=== PATIENT | female | born 1970 | race American Indian/Alaskan Native ===

== ENCOUNTER 2016-02-22 13:24 | Emergency (ER) | payer SELFPAY ==
--- NOTE | 2016-02-22 16:33 | Emergency Department Report ---
Chief Complaint: Abdominal Pain Stated Complaint: CRAMPING/MISSED PERIOD Time Seen by Provider: 02/22/16 16:28 - HPI History of Present Illness: Patient here reports that she's having lower abdominal cramping for 3-4 days. She said her last menstrual period was in December. Patient here reporting that she wants to know if she is . Denies any vaginal bleeding or discharge. She says she took a test but he came back pain. She says she schedule appointment for her primary care physician but couldn't wait to see primary care physician. Denies any urinary burning but reports urinary frequency. She says she drinks a lot of water. Pain is 8 out of 10 to lower abdomen and cramping. Denies any vomiting. Denies any diarrhea. She denies any fever or chills. - ROS Review of Systems: All systems are negative unless stated in HPI above. - Exam Vital Signs: Vital Signs 02/22/16 15:08 Temperature 98.2 F Pulse Rate 90 Blood Pressure 123/82 O2 Sat by Pulse 100 Oximetry Physical Exam: Gen: 45-year-old female well-nourished well-developed in no acute distress. GI: Abdomen tender to palpate to left lower pelvic area. No guarding or rebound tenderness. Normal bowel sounds in all quadrants MSE screening note: Focused history and physical exam performed. Due to findings the following was ordered:see mdm ED Medical Decision Making - Medical Decision Making Medical decision making: Patient seen by provider in triage area. Appropriate protocol activated and patient to main ED to be seen by physician. ED Disposition for MSE Condition: Stable Instructions: Abdominal Pain (ED)
[2016-02-22 16:48] LABS: Mean Corpuscular HGB Conc 29 % (30-34); Platelet Count 442 K/mm3 (140-440); White Blood Count 6.5 K/mm3 (4.5-11.0)
[2016-02-22 16:49] LABS: Hematocrit 26.5 % (30.3-42.9); Hemoglobin 7.7 gm/dl (10.1-14.3); Mean Corpuscular Hemoglobin 18 pg (28-32); Mean Corpuscular Volume 62 fl (79-97)
[2016-02-22 17:09] LABS: Alanine Aminotransferase 10 units/L (7-56); Albumin 4.5 g/dL (3.9-5); Albumin/Globulin Ratio 1.5 %; Alkaline Phosphatase 114 units/L (35-129); Anion Gap 16 mmol/L; BUN/Creatinine Ratio 11.66; Bilirubin,Total 0.2 mg/dL (0.1-1.2); Blood Urea Nitrogen 7 mg/dL (7-17); Calcium 9.6 mg/dL (8.4-10.2); Carbon Dioxide 26 mmol/L (22-30); Chloride 99.8 mmol/L (98-107); Glucose 97 mg/dL (65-100); Lipase 54 units/L (13-60); Sodium 138 mmol/L (137-145); Total Protein 7.5 g/dL (6.3-8.2)
[2016-02-22 17:19] LABS: Bilirubin,Urine NEG (Negative); Blood,Urine NEG (Negative); Ketones,Urine NEG (Negative); Leukocyte Esterase,Urine NEG (Negative); Nitrite,Urine NEG (Negative); Protein,Urine <15 mg/dL mg/dL (Negative); Urobilinogen,Urine < 2.0 mg/dL (<2.0); WBC,Urine < 1.0 /HPF (0.0-6.0)
[2016-02-22 17:47] LABS: Basophils % (Manual) 0 % (0.0-1.8); Blastocytes % (Manual) 0 %
[2016-02-22 17:49] LABS: Anisocytosis 1+; Diff Status Complete; Poikilocytosis Few
[2016-02-22 22:35] VITALS: BP 112/70
--- NOTE | 2016-02-22 23:09 | Emergency Department Report ---
ED Female HPI - General Chief complaint: Abdominal Pain Stated complaint: CRAMPING/MISSED PERIOD Time Seen by Provider: 02/22/16 16:28 Source: patient, old records reviewed Mode of arrival: Ambulatory Limitations: No Limitations - History of Present Illness Initial comments: 45-year-old female with a past medical history of iron deficiency anemia and asthma presents to the hospital complains of lower abdominal cramping for 3-4 days. Pain is intermittent and rated 8/10 intensity, no aggravating or alleviating factors reported. Denies associated symptoms including nausea, vomiting, diarrhea, fever, or dysuria. Patient states 2 weeks ago she had a fairly positive test and has a scheduled visit with Dr. Rahman in the next week. Came in today due to persistent pain. Patient has a history of anemia and only take her iron pills every other day due to constipation. History of blood transfusion in the past. Last menstrual cycle 12/29/2015 - Related Data Home Medications Medication Instructions Recorded Confirmed Last Taken Fluticasone/Salmeterol [Advair 1 puff INHALATION BID 08/30/13 02/22/16 Unknown Diskus 250-50 mcg] Montelukast [Singulair] 10 mg PO DAILY PRN 08/30/13 02/22/16 Unknown Previous Rx's Medication Instructions Recorded Last Taken Type ALBUTEROL Inhaler [ProAir HFA 2 puff IH QID PRN #1 inhalation 06/02/14 Unknown Rx Inhaler] Cetirizine HCl [ZyrTEC] 10 mg PO DAILY #30 capsule 01/25/16 Unknown Rx Ibuprofen [Motrin 800 MG tab] 800 mg PO Q8HR PRN #30 tablet 01/25/16 Unknown Rx Docusate Sodium [Colace] 100 mg PO BID PRN #30 capsule 02/22/16 Unknown Rx Ferrous Sulfate [Feosol 325 MG tab] 325 mg PO QDAY #30 tablet 02/22/16 Unknown Rx Polyethylene Glycol 3350 [Miralax 17 gm PO QDAY PRN #20 packet 02/22/16 Unknown Rx 3350] Allergies Allergy/AdvReac Type Severity Reaction Status Date / Time egg Allergy Hives Verified 06/02/14 11:53 hydrocodone Allergy Itching Verified 06/02/14 11:53 latex Allergy Itching Verified 06/02/14 11:53 Penicillins Allergy Itching Verified 06/02/14 11:53 ED Review of Systems ROS: Stated complaint: CRAMPING/MISSED PERIOD Other details as noted in HPI Comment: All other systems reviewed and negative Other: Constitutional: No fevers chills Eyes: No eye pain visual changes ENT: No ear pain or throat pain Neck: Denies pain Respiratory: Denies cough wheezing shortness of breath Cardiovascular: Denies chest pain, palpitations, syncope GI: As per HPI : Denies dysuria, urinary frequency, or urgency Musculoskeletal: Denies back pain Skin: Denies rash, lesions, erythema Neurologic: Denies headache, numbness, weakness Psychiatric: Denies suicidal ideation, hallucinations ED Past Medical Hx - Past Medical History Previous Medical History?: Yes Hx Asthma: Yes Additional medical history: anemia. "syncopy" - Surgical History Past Surgical History?: Yes Additional Surgical History: D&C - Social History Smoking Status: Never Smoker Substance Use Type: None - Medications Home Medications: Home Medications Medication Instructions Recorded Confirmed Last Taken Type Fluticasone/Salmeterol [Advair 1 puff INHALATION BID 08/30/13 02/22/16 Unknown History Diskus 250-50 mcg] Montelukast [Singulair] 10 mg PO DAILY PRN 08/30/13 02/22/16 Unknown History ALBUTEROL Inhaler [ProAir HFA 2 puff IH QID PRN #1 inhalation 06/02/14 02/22/16 Unknown Rx Inhaler] Cetirizine HCl [ZyrTEC] 10 mg PO DAILY #30 capsule 01/25/16 02/22/16 Unknown Rx Ibuprofen [Motrin 800 MG tab] 800 mg PO Q8HR PRN #30 tablet 01/25/16 02/22/16 Unknown Rx Docusate Sodium [Colace] 100 mg PO BID PRN #30 capsule 02/22/16 Unknown Rx Ferrous Sulfate [Feosol 325 MG tab] 325 mg PO QDAY #30 tablet 02/22/16 Unknown Rx Polyethylene Glycol 3350 [Miralax 17 gm PO QDAY PRN #20 packet 02/22/16 Unknown Rx 3350] ED Physical Exam - General Limitations: No Limitations - Other Other exam information: General: No limitations, patient is alert in no acute distress Head exam: Atraumatic, normocephalic Eyes exam: Normal appearance, pupils equal reactive to light, extraocular movements intact ENT: Moist mucous membrane, normal oropharynx Neck exam: Normal inspection, full range of motion, no meningismus nontender Respiratory exam: Clear to auscultation bilateral, no wheezes, rales, crackles Cardiovascular: Normal rate and rhythm, normal heart sounds Abdomen: Soft, nondistended, and nontender, with normal bowel sounds, no rebound, or guarding : No bleeding, CMT, or adnexal tenderness Extremity: Full range of motion normal inspection no deformity Back: Normal Inspection, full range of motion, no tenderness Neurologic: Alert, oriented x3, cranial nerves intact, no motor or sensory deficit Psychiatric: normal affect, normal mood Skin: Warm, dry, intact ED Course Vital Signs 02/22/16 02/22/16 02/22/16 15:08 22:00 22:34 Temperature 98.2 F 98.2 F Pulse Rate 90 70 Respiratory 18 18 Rate Blood Pressure 123/82 Blood Pressure 112/70 [Left] O2 Sat by Pulse 100 100 Oximetry - Reevaluation(s) Reevaluation #1: 02/22/16 23:11 Patient did not occur any pain medication ED Medical Decision Making - Lab Data Result diagrams: 02/22/16 16:35 02/22/16 16:35 Lab Results 02/22/16 02/22/16 02/22/16 Range/Units 16:35 16:35 16:35 WBC 6.5 (4.5-11.0) K/mm3 RBC 4.30 (3.65-5.03) M/mm3 Hgb 7.7 L (10.1-14.3) gm/dl Hct 26.5 L (30.3-42.9) % MCV 62 L (79-97) fl MCH 18 L (28-32) pg MCHC 29 L (30-34) % RDW 21.0 H (13.2-15.2) % Plt Count 442 H (140-440) K/mm3 Add Manual Diff Complete Total Counted 100 Seg Neuts % (Manual) 59.0 (40.0-70.0) % Band Neutrophils % 0 % Lymphocytes % (Manual) 31.0 (13.4-35.0) % Reactive Lymphs % (Man) 0 % Monocytes % (Manual) 8.0 H (0.0-7.3) % Eosinophils % (Manual) 2.0 (0.0-4.3) % Basophils % (Manual) 0 (0.0-1.8) % Metamyelocytes % 0 % Myelocytes % 0 % Promyelocytes % 0 % Blast Cells % 0 % Nucleated RBC % Not Reportable Seg Neutrophils # Man 3.8 (1.8-7.7) K/mm3 Band Neutrophils # 0.0 K/mm3 Lymphocytes # (Manual) 2.0 (1.2-5.4) K/mm3 Abs React Lymphs (Man) 0.0 K/mm3 Monocytes # (Manual) 0.5 (0.0-0.8) K/mm3 Eosinophils # (Manual) 0.1 (0.0-0.4) K/mm3 Basophils # (Manual) 0.0 (0.0-0.1) K/mm3 Metamyelocytes # 0.0 K/mm3 Myelocytes # 0.0 K/mm3 Promyelocytes # 0.0 K/mm3 Blast Cells # 0.0 K/mm3 WBC Morphology Not Reportable Hypersegmented Neuts Not Reportable Hyposegmented Neuts Not Reportable Hypogranular Neuts Not Reportable Smudge Cells Not Reportable Toxic Granulation Not Reportable Toxic Vacuolation Not Reportable Dohle Bodies Not Reportable Pelger-Huet Anomaly Not Reportable Hermelindo Rods Not Reportable Platelet Estimate Appears normal Clumped Platelets Not Reportable Plt Clumps, EDTA Not Reportable Large Platelets Not Reportable Giant Platelets Not Reportable Platelet Satelliting Not Reportable Plt Morphology Comment Not Reportable RBC Morphology Not Reportable Dimorphic RBCs Not Reportable Polychromasia Not Reportable Hypochromasia Not Reportable Poikilocytosis Few Anisocytosis 1+ Microcytosis Not Reportable Macrocytosis Not Reportable Spherocytes Not Reportable Pappenheimer Bodies Not Reportable Sickle Cells Not Reportable Target Cells Not Reportable Tear Drop Cells Not Reportable Ovalocytes Not Reportable Helmet Cells Not Reportable Hernandez-Gapland Bodies Not Reportable [place] Rings Not Reportable Fidelia Cells Not Reportable Bite Cells Not Reportable Crenated Cell Not Reportable Elliptocytes Not Reportable Acanthocytes (Spur) Not Reportable Rouleaux Not Reportable Hemoglobin C Crystals Not Reportable Schistocytes Not Reportable Malaria parasites Not Reportable Dave Bodies Not Reportable Hem Pathologist Commnt No Sodium 138 (137-145) mmol/L Potassium 4.0 (3.6-5.0) mmol/L Chloride 99.8 (98-107) mmol/L Carbon Dioxide 26 (22-30) mmol/L Anion Gap 16 mmol/L BUN 7 (7-17) mg/dL Creatinine 0.6 L (0.7-1.2) mg/dL Estimated GFR > 60 ml/min BUN/Creatinine Ratio 11.66 % Glucose 97 (65-100) mg/dL Calcium 9.6 (8.4-10.2) mg/dL Total Bilirubin 0.2 (0.1-1.2) mg/dL AST 20 (5-40) units/L ALT 10 (7-56) units/L Alkaline Phosphatase 114 (35-129) units/L Total Protein 7.5 (6.3-8.2) g/dL Albumin 4.5 (3.9-5) g/dL Albumin/Globulin Ratio 1.5 % Lipase 54 (13-60) units/L HCG, Qual Negative (Negative) Urine Color (Yellow) Urine Turbidity (Clear) Urine pH (5.0-7.0) Ur Specific [place] (1.003-1.030) Urine Protein (Negative) mg/dL Urine Glucose (UA) (Negative) mg/dL Urine Ketones (Negative) mg/dL Urine Blood (Negative) Urine Nitrite (Negative) Urine Bilirubin (Negative) Urine Urobilinogen (<2.0) mg/dL Ur Leukocyte Esterase (Negative) Urine WBC (Auto) (0.0-6.0) /HPF Urine RBC (Auto) (0.0-6.0) /HPF U Epithel Cells (Auto) (0-13.0) /HPF 02/22/16 Range/Units 16:57 WBC (4.5-11.0) K/mm3 RBC (3.65-5.03) M/mm3 Hgb (10.1-14.3) gm/dl Hct (30.3-42.9) % MCV (79-97) fl MCH (28-32) pg MCHC (30-34) % RDW (13.2-15.2) % Plt Count (140-440) K/mm3 Add Manual Diff Total Counted Seg Neuts % (Manual) (40.0-70.0) % Band Neutrophils % % Lymphocytes % (Manual) (13.4-35.0) % Reactive Lymphs % (Man) % Monocytes % (Manual) (0.0-7.3) % Eosinophils % (Manual) (0.0-4.3) % Basophils % (Manual) (0.0-1.8) % Metamyelocytes % % Myelocytes % % Promyelocytes % % Blast Cells % % Nucleated RBC % Seg Neutrophils # Man (1.8-7.7) K/mm3 Band Neutrophils # K/mm3 Lymphocytes # (Manual) (1.2-5.4) K/mm3 Abs React Lymphs (Man) K/mm3 Monocytes # (Manual) (0.0-0.8) K/mm3 Eosinophils # (Manual) (0.0-0.4) K/mm3 Basophils # (Manual) (0.0-0.1) K/mm3 Metamyelocytes # K/mm3 Myelocytes # K/mm3 Promyelocytes # K/mm3 Blast Cells # K/mm3 WBC Morphology Hypersegmented Neuts Hyposegmented Neuts Hypogranular Neuts Smudge Cells Toxic Granulation Toxic Vacuolation Dohle Bodies Pelger-Huet Anomaly Hermelindo Rods Platelet Estimate Clumped Platelets Plt Clumps, EDTA Large Platelets Giant Platelets Platelet Satelliting Plt Morphology Comment RBC Morphology Dimorphic RBCs Polychromasia Hypochromasia Poikilocytosis Anisocytosis Microcytosis Macrocytosis Spherocytes Pappenheimer Bodies Sickle Cells Target Cells Tear Drop Cells Ovalocytes Helmet Cells Hernandez-Gapland Bodies [place] Rings Mathews Cells Bite Cells Crenated Cell Elliptocytes Acanthocytes (Spur) Rouleaux Hemoglobin C Crystals Schistocytes Malaria parasites Dave Bodies Hem Pathologist Commnt Sodium (137-145) mmol/L Potassium (3.6-5.0) mmol/L Chloride (98-107) mmol/L Carbon Dioxide (22-30) mmol/L Anion Gap mmol/L BUN (7-17) mg/dL Creatinine (0.7-1.2) mg/dL Estimated GFR ml/min BUN/Creatinine Ratio % Glucose (65-100) mg/dL Calcium (8.4-10.2) mg/dL Total Bilirubin (0.1-1.2) mg/dL AST (5-40) units/L ALT (7-56) units/L Alkaline Phosphatase (35-129) units/L Total Protein (6.3-8.2) g/dL Albumin (3.9-5) g/dL Albumin/Globulin Ratio % Lipase (13-60) units/L HCG, Qual (Negative) Urine Color Straw (Yellow) Urine Turbidity Clear (Clear) Urine pH 6.0 (5.0-7.0) Ur Specific [place] 1.010 (1.003-1.030) Urine Protein <15 mg/dl (Negative) mg/dL Urine Glucose (UA) Neg (Negative) mg/dL Urine Ketones Neg (Negative) mg/dL Urine Blood Neg (Negative) Urine Nitrite Neg (Negative) Urine Bilirubin Neg (Negative) Urine Urobilinogen < 2.0 (<2.0) mg/dL Ur Leukocyte Esterase Neg (Negative) Urine WBC (Auto) < 1.0 (0.0-6.0) /HPF Urine RBC (Auto) 1.0 (0.0-6.0) /HPF U Epithel Cells (Auto) < 1.0 (0-13.0) /HPF Wet prep negative - Medical Decision Making Plan discharge patient home and recommend Tylenol as needed for pain. No signs of . Positive anemia likely iron deficiency. Patient be encouraged to take her iron tablets daily instead of every other day and Colace and MiraLAX to be prescribed as needed for constipation - Differential Diagnosis vaginitis, cervicitis, , iron deficiency anemia Critical Care Time: No Critical care attestation.: If time is entered above; I have spent that time in minutes in the direct care of this critically ill patient, excluding procedure time. ED Disposition Clinical Impression: Irregular menses Iron (Fe) deficiency anemia Qualifiers: Iron deficiency anemia type: unspecified iron deficiency Qualified Code(s): D50.9 - Iron deficiency anemia, unspecified Disposition: DISCHARGED TO HOME OR SELFCARE Is pt being admited?: No Does the pt Need Aspirin: No Condition: Stable Instructions: Menstruation (ED), Iron Deficiency Anemia (ED) Additional Instructions: Take Tylenol as needed for pain. Take the iron tablets and stool softeners as prescribed. Return if symptoms worsen. Prescriptions: Docusate Sodium [Colace] 100 mg PO BID PRN #30 capsule PRN Reason: Constipation Ferrous Sulfate [Feosol 325 MG tab] 325 mg PO QDAY #30 tablet Polyethylene Glycol 3350 [Miralax 3350] 17 gm PO QDAY PRN #20 packet PRN Reason: Constipation Referrals: AGUILA RAHMAN MD [Staff Physician] - 3-5 Days (obstetrics gynecology md ) Time of Disposition: 23:15
== END 2016-02-22 23:16 | disposition home or self-care (01) ==
LOC: ED 13:24
DX: N92.6 Irregular menstruation, unspecified (principal); D50.9 Iron deficiency anemia, unspecified; J45.909 Unspecified asthma, uncomplicated; Z91.012 Allergy to eggs; Z91.040 Latex allergy status; Z88.0 Allergy status to penicillin; Z88.8 Allergy status to other drugs, medicaments and biological substances
CPT/HCPCS: 36415; 80053; 81001; 83690; 84703; 85007; 85025; 87210; 87591; 99284

== ENCOUNTER 2018-03-03 20:39 | Emergency (ER) | payer SELFPAY ==
[2018-03-03 20:49] VITALS: BP 118/41
[2018-03-03 21:42] LABS: Bilirubin,Urine NEG (Negative); Blood,Urine NEG (Negative); Color,Urine Yellow (Yellow); Protein,Urine <15 mg/dL mg/dL (Negative); WBC,Urine < 1.0 /HPF (0.0-6.0)
[2018-03-03 21:49] LABS: HCG Qualitative,Urine Negative (Negative)
[2018-03-03] MEDS ORDERED: XYLOCAINE 1% MPF 5 mL INFILTRATI ONE (22:59)
[2018-03-03] MEDS ORDERED: ROCEPHIN IM ONE (22:59)
[2018-03-03] MEDS ORDERED: ZITHROMAX PO ONE (22:59)
--- NOTE | 2018-03-03 23:04 | Emergency Department Report ---
ED Female HPI - General Chief complaint: Urogenital-Female Stated complaint: ABDOMINAL PAIN Source: patient Mode of arrival: Ambulatory Limitations: No Limitations - History of Present Illness Initial comments: There is a 47-year-old [place] female who states she caught her before when cheating on abnormal vaginal itching since patient be treated prophylactically for STI there is no vaginal discharge no bleeding back pain nausea vomiting no fever no chills given circumstances is a reasonable request patient will follow up with health department for HIV and HSV screening MD Complaint: vaginal discharge Onset/Timin -: days(s) Radiation: non-radiating Severity: mild Severity scale (0 -10): 2 Consistency: constant Improves with: none Worsens with: none Are you Now?: No Last Menstrual Period: 02/17/18 EDC: 11/24/18 - Related Data Home Medications Medication Instructions Recorded Confirmed Last Taken Fluticasone/Salmeterol [Advair 1 puff INHALATION BID 08/30/13 02/22/16 Unknown Diskus 250-50 mcg] Montelukast [Singulair] 10 mg PO DAILY PRN 08/30/13 02/22/16 Unknown Previous Rx's Medication Instructions Recorded Last Taken Type ALBUTEROL Inhaler (OR & NICU) 2 puff IH QID PRN #1 inhalation 06/02/14 Unknown Rx [ProAir HFA Inhaler] Cetirizine HCl [ZyrTEC] 10 mg PO DAILY #30 capsule 01/25/16 Unknown Rx Ibuprofen [Motrin 800 MG tab] 800 mg PO Q8HR PRN #30 tablet 01/25/16 Unknown Rx Docusate Sodium [Colace] 100 mg PO BID PRN #30 capsule 02/22/16 Unknown Rx Ferrous Sulfate [Feosol 325 MG tab] 325 mg PO QDAY #30 tablet 02/22/16 Unknown Rx Polyethylene Glycol 3350 [Miralax 17 gm PO QDAY PRN #20 packet 02/22/16 Unknown Rx 3350] Fluconazole [Diflucan] 150 mg PO ONCE #1 tablet 03/03/18 Unknown Rx metroNIDAZOLE [Flagyl] 500 mg PO BID 10 Days #20 tab 03/03/18 Unknown Rx Allergies Allergy/AdvReac Type Severity Reaction Status Date / Time egg Allergy Hives Verified 06/02/14 11:53 hydrocodone Allergy Itching Verified 06/02/14 11:53 latex Allergy Itching Verified 06/02/14 11:53 Penicillins Allergy Itching Verified 06/02/14 11:53 ED Review of Systems ROS: Stated complaint: ABDOMINAL PAIN Other details as noted in HPI Constitutional: denies: chills, fever Eyes: denies: eye pain, eye discharge, vision change ENT: denies: ear pain, throat pain Respiratory: denies: cough, shortness of breath, wheezing Cardiovascular: denies: chest pain, palpitations Endocrine: no symptoms reported Gastrointestinal: denies: abdominal pain, nausea, diarrhea Genitourinary: denies: urgency, dysuria, discharge Musculoskeletal: denies: back pain, joint swelling, arthralgia Skin: denies: rash, lesions Neurological: denies: headache, weakness, paresthesias Psychiatric: denies: anxiety, depression Hematological/Lymphatic: denies: easy bleeding, easy bruising ED Past Medical Hx - Past Medical History Hx Asthma: Yes Additional medical history: anemia. "syncopy" - Surgical History Additional Surgical History: D&C - Social History Smoking Status: Never Smoker Substance Use Type: None - Medications Home Medications: Home Medications Medication Instructions Recorded Confirmed Last Taken Type Fluticasone/Salmeterol [Advair 1 puff INHALATION BID 08/30/13 02/22/16 Unknown History Diskus 250-50 mcg] Montelukast [Singulair] 10 mg PO DAILY PRN 08/30/13 02/22/16 Unknown History ALBUTEROL Inhaler (OR & NICU) 2 puff IH QID PRN #1 inhalation 06/02/14 02/22/16 Unknown Rx [ProAir HFA Inhaler] Cetirizine HCl [ZyrTEC] 10 mg PO DAILY #30 capsule 01/25/16 02/22/16 Unknown Rx Ibuprofen [Motrin 800 MG tab] 800 mg PO Q8HR PRN #30 tablet 01/25/16 02/22/16 Unknown Rx Docusate Sodium [Colace] 100 mg PO BID PRN #30 capsule 02/22/16 Unknown Rx Ferrous Sulfate [Feosol 325 MG tab] 325 mg PO QDAY #30 tablet 02/22/16 Unknown Rx Polyethylene Glycol 3350 [Miralax 17 gm PO QDAY PRN #20 packet 02/22/16 Unknown Rx 3350] Fluconazole [Diflucan] 150 mg PO ONCE #1 tablet 03/03/18 Unknown Rx metroNIDAZOLE [Flagyl] 500 mg PO BID 10 Days #20 tab 03/03/18 Unknown Rx ED Physical Exam - General Limitations: No Limitations General appearance: alert, in no apparent distress - Head Head exam: Present: atraumatic, normocephalic - Eye Eye exam: Present: normal appearance - ENT ENT exam: Present: mucous membranes moist - Neck Neck exam: Present: normal inspection - Respiratory Respiratory exam: Present: normal lung sounds bilaterally. Absent: respiratory distress - Cardiovascular Cardiovascular Exam: Present: regular rate, normal rhythm. Absent: systolic murmur, diastolic murmur, rubs, gallop - GI/Abdominal GI/Abdominal exam: Present: soft, normal bowel sounds - Rectal Rectal exam: Present: deferred - External exam: Present: other (deferred by patient ) - Extremities Exam Extremities exam: Present: normal inspection - Back Exam Back exam: Present: normal inspection, full ROM. Absent: tenderness, CVA tenderness (R), CVA tenderness (L), muscle spasm - Neurological Exam Neurological exam: Present: alert, oriented X3, normal gait - Psychiatric Psychiatric exam: Present: normal affect, normal mood - Skin Skin exam: Present: warm, dry, intact, normal color. Absent: rash ED Course Vital Signs 03/03/18 20:45 Temperature 98.6 F Pulse Rate 93 H Respiratory 14 Rate Blood Pressure 118/41 O2 Sat by Pulse 100 Oximetry ED Medical Decision Making - Medical Decision Making this is and STI Exposure, pt will follow up with health deparment for HIV and HSV screening in 2-3 days , return to ed if symptoms occur or worsen, pt verbalized agreement and understanding of discharge plan. Critical care attestation.: If time is entered above; I have spent that time in minutes in the direct care of this critically ill patient, excluding procedure time. ED Disposition Clinical Impression: STD exposure Disposition: DC- TO HOME OR SELFCARE Is pt being admited?: No Does the pt Need Aspirin: No Condition: Stable Instructions: Sexually Transmitted Diseases (ED) Prescriptions: Fluconazole [Diflucan] 150 mg PO ONCE #1 tablet metroNIDAZOLE [Flagyl] 500 mg PO BID 10 Days #20 tab Referrals: DAVI SPIVEY MD [Primary Care Provider] - 3-5 Days Forms: Work/School Release Form(ED) Time of Disposition: 23:06
== END 2018-03-04 00:05 | disposition home or self-care (01) ==
LOC: ED 20:39
DX: Z20.2 Contact with and (suspected) exposure to infections with a predominantly sexual mode of transmission (principal); J45.909 Unspecified asthma, uncomplicated; R55 Syncope and collapse; Z91.012 Allergy to eggs; Z91.040 Latex allergy status; Z88.5 Allergy status to narcotic agent; Z88.0 Allergy status to penicillin; Z21 Asymptomatic human immunodeficiency virus [HIV] infection status; Z86.2 Personal history of diseases of the blood and blood-forming organs and certain disorders involving the immune mechanism
CPT/HCPCS: 81001; 81025; 96372; 99283; J0696